=== PATIENT | female | born 1965 | race Caucasian/White ===

== ENCOUNTER 2018-03-26 07:44 | Day surgery (SDC) | payer BC ==
[~2018-03-26] VITALS: Ht 165.1 cm; Wt 80.9 kg
--- NOTE | ~2018-03-26 | OP ---
PATIENT NAME: RANDALL DIAS MEDICAL RECORD: [id number] :67 LOCATION:D.OPS ADMISSION DATE: SURGEON: KELLIE WARREN MD DATE OF OPERATION: 03/26/2018 PREOPERATIVE DIAGNOSES: 1. Chronic diarrhea. 2. History of diverticulosis with diverticulitis. 2. Desires screening colonoscopy for a malignant neoplasm. POSTOPERATIVE DIAGNOSES: 1. Chronic diarrhea. 2. History of diverticulosis with diverticulitis 3. Desires screening colonoscopy for a malignant neoplasm. 4. Normal-appearing ileum. Mild pandiverticulosis. No evidence of colitis or proctitis. Several diminutive polyps within the rectum. I removed 2 of these utilizing the hot biopsy forceps polypectomy technique. Both were less than a millimeter and were sessile. OPERATIVE COURSE: The patient was conveyed to endoscopy suite electively on 03/26/2018. IV sedation was induced by the anesthesia staff. The patient was placed in the Kim position. A digital rectal examination was performed. A colonoscope was inserted through the anus. It was easily advanced to the cecum. I intubated the ileum which appeared normal. A single ileal biopsy was performed utilizing cold biopsy forceps. I then withdrew into the colon. I irrigated and aspirated extensively. The pullback was greater than an 18-minute pullback. I dragged the folds. A combination of normal imaging as well as narrow band imaging were utilized. Multiple cold endoscopic biopsies were performed due to history of chronic diarrhea. In the rectum, two hot biopsy forceps polypectomies were performed. There were some other very diminutive polyps which were best seen with narrow band imaging. These were ablated and not biopsied. During the entire pullback process, a combination of normal imaging and narrow band imaging were utilized. A retroflexed view was obtained in the rectum. I then unretroflexed the scope and removed it under direct vision. There is no need for the patient to follow up with me in the office. She is a friend of mine from in [employer] and she can contact me to get the results of her biopsies. TRANSINT:[id number] Voice Confirmation ID: [id number] DOCUMENT ID: [id number] KELLIE WARREN MD at 1747 CC: JAXON GUERRERO MD [id number] DICTATION DATE: 03/26/18 6386 [employer]: 03/26/18 1332 DEP SDC 03/26/18 [facility] [address] [place] [address]
--- NOTE | ~2018-03-26 | HP ---
PATIENT: RANDALL DIAS MEDICAL RECORD: [id number] ACCOUNT: [id number] LOCATION:[facility] : 67 ADMISSION DATE: 03/26/18 HISTORY AND PHYSICAL EXAMINATION This is a friend of mine from [place]. HISTORY OF PRESENT ILLNESS: The patient is here for a screening colonoscopy. The patient has frequent diarrhea and has had chronic diarrhea for about 20 years. She does have some abdominal pain and underwent a CT scan at [place], which did reveal some diverticulosis. Also, she had been treated for diverticulitis in the past. SOCIAL HISTORY: Smoker. PAST MEDICAL AND SURGICAL HISTORY: Asthma as well as gastroesophageal reflux, which is controlled on medications. HOME MEDICATIONS: Please see the nursing list. ALLERGIES: No known drug allergies. REVIEW OF SYSTEMS: Negative for CVA or seizures. Negative for diabetes or thyroid problems. PHYSICAL EXAMINATION: GENERAL: The patient does not appear acutely ill. She does not appear chronically ill. VITAL SIGNS: Reviewed. EARS: External ears appear normal. EYES: Extraocular movements are intact. NECK: Trachea is midline. CHEST: No intercostal retractions. PULMONARY: Nonlabored. IMPRESSION: 1. Chronic diarrhea. 2. Desires screening colonoscopy to rule out malignant neoplasm. 3. History of diverticulosis with diverticulitis. PLAN: Colonoscopy, likely with random biopsies due to the chronic diarrhea. TRANSINT:[id number] Voice Confirmation ID: [id number] DOCUMENT ID: [id number] KELLIE WARREN MD at 1746 CC: JAXON GUERRERO MD [id number] DICTATION DATE: 03/26/18 1052 ROPE CUTTER: 03/26/18 1310 [facility] 03/26/18 [id number] [place] [address]
[2018-03-26 08:02] LABS: BASOPHILS 0.6 % (0-2); EOSINOPHILS 4.6 % (0-7); HEMATOCRIT 44.9 % (42.0-54.0); HEMOGLOBIN 15.3 g/dL (13.5-17.5); IMMATURE GRANULOCYTES 0.1 % (0-5); MCH 30.8 pg (26.0-34.0); MCHC 34.1 g/dL (31.0-37.0); MCV 90.3 fL (80.0-100.0); MEAN PLATELET VOLUME 10.2 fL (7.4-10.4); NEUTROPHILS 53.7 % (40-80); PLATELET COUNT 244 10x3/uL (130-400); RBC 4.97 10x6/uL (4.20-6.10); RDW 12.9 % (11.5-14.5); WBC 6.8 10x3/uL (4.8-10.8)
[2018-03-26 08:33] LABS: ANION GAP 14.9 mmol/L (8-16); CALCIUM 9.1 mg/dL (8.5-10.1); CARBON DIOXIDE 27.3 mmol/L (21.0-32.0); CREATININE - SERUM 0.9 mg/dL (0.6-1.3); POTASSIUM - SERUM 4.2 mmol/L (3.5-5.1)
[2018-03-26 08:40] VITALS: BP 105/57; Ht 165.1 cm; Wt 80.9 kg
[2018-03-26] MEDS ORDERED: VENTOLIN HFA18 GM INH (08:45)
[2018-03-26] MEDS ORDERED: OMEPRAZOLE20 M1 PO (08:45)
== END 2018-03-26 12:33 | disposition home or self-care (01) ==
LOC: D.OPS 07:44 → EDSEX 07:44 → D.OPS 10:00
PROVIDERS: Anesthesiology
DX: K57.30 Diverticulosis of large intestine without perforation or abscess without bleeding (principal); D12.8 Benign neoplasm of rectum; K62.1 Rectal polyp; K52.9 Noninfective gastroenteritis and colitis, unspecified; J45.909 Unspecified asthma, uncomplicated; K21.9 Gastro-esophageal reflux disease without esophagitis; F17.200 Nicotine dependence, unspecified, uncomplicated; Z01.812 Encounter for preprocedural laboratory examination